=== PATIENT | female | born 1970 | race Caucasian/White ===

== ENCOUNTER → 2016-05-05 | Outpatient (CLI) | payer OTHER ==
[~2016-05-05] MED LIST: ALPRAZOLAM PO; AMITRYPTYLINE PO; BACTRIM DS TABL1 TA1 PO; CIPRO PO; CLARITIN10 M3 PO; DICLOFENAC PO; FLAGYL PO; FLEXERIL10 MG PO; HYDROCHLOROTHIA25 MG PO; HYDROCODON-ACE1 EAC7 PO; IBUPROFEN800 MG PO; KEFLEX500 MG PO; KETOPROFEN PO; LISINOPRIL10 MG PO; LORCET PO; LORTAB 5/500 TA1 TA1 PO; LORTAB 7.5-5001 TAB PO; METRONIDAZOLE PO; MILK OF MAGNESIA PO; NAPROSYN500 MG PO; NO MEDICATIONS; NON-ASPIRIN PA325 M1 PO; ORUDIS75 M1 PO; PEN-VEE K PO; PHENERGAN25 M1 PO; PHENERGAN25 MG PO; VICODIN 5/500 T1 TAB PO
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
== END | disposition home or self-care (01) ==
LOC: CMRI 16:47
DX: M54.5 Low back pain (principal); R20.0 Anesthesia of skin; M47.816 Spondylosis without myelopathy or radiculopathy, lumbar region; M51.26 Other intervertebral disc displacement, lumbar region; M48.06 Spinal stenosis, lumbar region
CPT/HCPCS: 72148